=== PATIENT | female | born 1965 | race African-American/Black ===

== ENCOUNTER 2017-05-21 19:41 | Emergency (ER) | payer SELFPAY ==
[~2017-05-21] VITALS: Ht 172.7 cm; Wt 86.3 kg
[~2017-05-21 19:41] MED LIST: CARI350T PO; HYDR-522
[2017-05-21] MEDS ORDERED: SODIUM CHLORIDE 0.9% 1,000 ML IV ONE (22:50)
[2017-05-21] MEDS ORDERED: MORPHINE SULFATE 4 MG/ML CPJ (NOT FOR IM USE) IV ONE (23:00)
[2017-05-21 23:14] LABS: BASOPHILS % 0.4 % (0.0-2.0); EOSINOPHILS % 1.7 % (0.0-5.0); HEMATOCRIT. 37.3 % (36.0-48.0); HEMOGLOBIN. 12.5 g/dL (12.0-16.0); MEAN CORPUSCULAR HEMOGLOBIN 29.7 pg (28.0-32.0); MEAN CORPUSCULAR VOLUME 88.2 fL (81.0-99.0); MEAN PLATELET VOLUME 8.4 fl (7.4-10.4); MONOCYTES % 8.4 % (2.0-8.0); NEUTROPHILS % 59.5 % (40.0-76.0); PLATELET 168 x1000/uL (130-400); RED BLOOD CELL COUNT 4.22 mill/uL (4.2-5.4); RED CELL DISTRIBUTION WIDTH 13.3 % (11.6-14.6)
[2017-05-21 23:18] LABS: CHLORIDE 108 mEq/L (98-107)
[2017-05-21 23:21] LABS: CARBON DIOXIDE 24 mEq/L (21-32); INR 1.1; PROTHROMBIN TIME 10.9 sec
[2017-05-21 23:32] LABS: HCG SCREEN NEGATIVE
[2017-05-21 23:50] LABS: CLARITY URINE CLOUDY (CLEAR); COLOR URINE YELLOW (YELLOW); GLUCOSE URINE NEGATIVE (NEGATIVE); KETONES URINE TRACE (NEGATIVE); LEUKOCYTE ESTERASE URINE 1+ (NEGATIVE); NITRITE URINE NEGATIVE (NEGATIVE); OCCULT BLOOD URINE TRACE (NEGATIVE); PH URINE 5.5 (4.5-8.0); PROTEIN URINE NEGATIVE (NEGATIVE); SPECIFIC GRAVITY URINE 1.044 (1.005-1.030); UROBILINOGEN URINE 0.2 E.U./dL (0.2-1.0)
[2017-05-22] MEDS ORDERED: HYDROCODONE/ACETAMINOPHEN 5/325MG TABLET PO SCH (04:30)
[2017-05-22] MEDS ORDERED: ONDANSETRON 4MG ODT PO PRN (04:30)
[2017-05-22] MEDS ORDERED: CEFTRIAXONE SODIUM 250 MG/VIAL IM SCH (04:30)
[2017-05-22 06:03] VITALS: BP 107/65
[2017-05-26 04:12] LABS: CHLAMYDIA TRACHOMATIS NAA Negative (Negative); NEISSERIA GONORRHOEAE NAA Negative (Negative)
== END 2017-05-22 06:45 | disposition home or self-care (01) ==
LOC: ER 19:47
DX: R10.84 Generalized abdominal pain (principal); R11.2 Nausea with vomiting, unspecified; J45.909 Unspecified asthma, uncomplicated; Z90.49 Acquired absence of other specified parts of digestive tract; Z98.51 Tubal ligation status; Z88.0 Allergy status to penicillin; Z88.6 Allergy status to analgesic agent
CPT/HCPCS: 36415; 74176; 80053; 81001; 83690; 84703; 85025; 85610; 87491; 87591; 96372; 96374; 99285; J0696; J2270; J7030; Q0162

== ENCOUNTER 2017-10-11 20:31 | Emergency (ER) | payer MEDICAID ==
[~2017-10-11] VITALS: Ht 175.3 cm; Wt 70.0 kg
[2017-10-12] MEDS ORDERED: HYDROCODONE/ACETAMINOPHEN 10/325MG TABLET PO ONE (03:45)
[2017-10-12 05:20] VITALS: BP 135/79
== END 2017-10-12 05:30 | disposition home or self-care (01) ==
LOC: ER 21:01
DX: S82.832A Other fracture of upper and lower end of left fibula, initial encounter for closed fracture (principal); S82.831A Other fracture of upper and lower end of right fibula, initial encounter for closed fracture; J45.909 Unspecified asthma, uncomplicated; F16.10 Hallucinogen abuse, uncomplicated; Z88.6 Allergy status to analgesic agent; Z88.0 Allergy status to penicillin; Z90.49 Acquired absence of other specified parts of digestive tract; X50.1XXA Overexertion from prolonged static or awkward postures, initial encounter; Y93.41 Activity, dancing; Y92.018 Other place in single-family (private) house as the place of occurrence of the external cause
CPT/HCPCS: 29515; 73610; 99284; Z7610

== ENCOUNTER 2019-01-18 01:45 | Emergency (ER) | payer MEDICAID ==
[~2019-01-18] VITALS: Ht 172.7 cm; Wt 68.2 kg
[~2019-01-18 01:45] MED LIST changes: -CARI350T PO; +S350 PO
[2019-01-18 02:07] VITALS: BP 111/76
== END 2019-01-18 05:30 | disposition left against medical advice (07) ==
LOC: ER 01:45
DX: R68.89 Other general symptoms and signs (principal); Z53.21 Procedure and treatment not carried out due to patient leaving prior to being seen by health care provider

== ENCOUNTER 2020-04-24 18:16 | Emergency (ER) | payer MEDICAID ==
[~2020-04-24] VITALS: Ht 172.7 cm; Wt 78.0 kg
[~2020-04-24 18:16] MED LIST changes: +CARI350T28 PO; -S350 PO
[2020-04-24] MEDS ORDERED: SODIUM CHLORIDE 0.9% 1,000 ML IV ONE (21:02)
[2020-04-24] MEDS ORDERED: ONDANSETRON 4MG ODT PO STA (21:02)
[2020-04-24 21:21] LABS: BASOPHILS % 0.6 % (0.0-2.0); HEMATOCRIT. 36.1 % (36.0-48.0); HEMOGLOBIN. 12.1 g/dL (12.0-16.0); LYMPHOCYTES % 15.9 % (20.0-50.0); MEAN CORPUSCULAR HEMOGLOBIN 29.4 pg (28.0-32.0); MEAN CORPUSCULAR VOLUME 88.1 fL (81.0-99.0); MEAN PLATELET VOLUME 8.7 fl (7.4-10.4); MONOCYTES % 5.6 % (2.0-8.0); NEUTROPHILS % 73.9 % (40.0-76.0); PLATELET 239 x1000/uL (130-400); RED CELL DISTRIBUTION WIDTH 14.9 % (11.6-14.6)
[2020-04-24 21:25] LABS: CHLORIDE 110 mEq/L (98-107)
[2020-04-24 21:28] LABS: PROTHROMBIN TIME 10.8 sec (9.6-11.0)
[2020-04-24 22:03] LABS: CLARITY URINE CLEAR (CLEAR); COLOR URINE YELLOW (YELLOW); KETONES URINE NEGATIVE (NEGATIVE); LEUKOCYTE ESTERASE URINE 1+ (NEGATIVE); NITRITE URINE NEGATIVE (NEGATIVE); OCCULT BLOOD URINE NEGATIVE (NEGATIVE); PH URINE 8.5 (4.5-8.0); PROTEIN URINE NEGATIVE (NEGATIVE); SPECIFIC GRAVITY URINE 1.022 (1.005-1.030); UROBILINOGEN URINE 0.2 E.U./dL (0.2-1.0)
[2020-04-24] MEDS ORDERED: MAGNESIUM/ALUMINUM HYDROXIDE/SIMETHICONE 30ML UDC PO ONE (23:00)
[2020-04-24] MEDS ORDERED: VISCOUS LIDOCAINE 2% 15 ML UDC PO ONE (23:00)
[2020-04-24] MEDS ORDERED: MAGNESIUM CITRATE 300ML SOLUTION PO ONE (23:15)
[2020-04-25 00:13] VITALS: BP 136/83
== END 2020-04-25 01:04 | disposition home or self-care (01) ==
LOC: ER 18:16
DX: R10.9 Unspecified abdominal pain (principal); K59.00 Constipation, unspecified; J45.909 Unspecified asthma, uncomplicated; Z88.0 Allergy status to penicillin; Z88.6 Allergy status to analgesic agent
CPT/HCPCS: 36415; 74176; 80053; 81003; 83690; 85025; 85610; 99284; J7030; Q0162